=== PATIENT | male | born 1945 | race Caucasian/White ===

== ENCOUNTER 2023-10-02 09:05 | Observation (INO) | payer MEDICARE, BC ==
[2023-09-29 16:30] LABS: BASOPHILS # (AUTO) 0.1 X10'3 (0-0.2); BASOPHILS % (AUTO) 1.5 % (0-1); EOSINOPHILS # (AUTO) 0.5 X10'3 (0-0.9); EOSINOPHILS % (AUTO) 5.9 % (0-6); LYMPHOCYTES # (AUTO) 1.4 X10'3 (1.1-4.8); LYMPHOCYTES % (AUTO) 15.3 % (21-51); MEAN CORPUSCULAR HEMOGLOBIN 32.2 PG (27.0-31.0); MEAN CORPUSCULAR HGB CONC 33.7 g/dL (33.0-36.5); MEAN CORPUSCULAR VOLUME 95.5 FL (78-98); MEAN PLATELET VOLUME 6.9 FL (7.4-10.4); MONOCYTES # (AUTO) 0.6 X10'3 (0-0.9); MONOCYTES % (AUTO) 6.4 % (2-12); NEUTROPHILS # (AUTO) 6.4 X10'3 (1.8-7.7); NEUTROPHILS % (AUTO) 70.9 % (42-75); PRE OP HEMATOCRIT 45.2 % (42.0-52.0); PRE OP HEMOGLOBIN 15.2 g/dL (14.0-17.9); PRE OP PLATELET COUNT 267 X10'3 (140-440); PRE OP WHITE BLOOD COUNT 9.1 10'3 (4.8-10.8); RED BLOOD COUNT 4.73 X10'6 (4.70-6.10); RED CELL DISTRIBUTION WIDTH 14.5 % (11.5-14.5)
[2023-09-29 17:01] LABS: ALBUMIN 3.5 G/DL (3.4-5.0); ALBUMIN/GLOBULIN RATIO 0.9 (1.1-1.5); ALKALINE PHOSPHATASE 75 IU/L (46-116); BLOOD UREA NITROGEN 17 MG/DL (7-18); BUN/CREATININE RATIO 17.7 (10.0-20.0); CALCIUM 8.6 MG/DL (8.5-10.1); CHLORIDE 107 MMOL/L (99-107); CREATININE 0.96 MG/DL (0.60-1.10); PRE OP ALT 22 U/L (30-65); PRE OP ANION GAP 8 (8-16); PRE OP AST 18 U/L (10-37); PRE OP BILIRUB, TOTAL 0.4 MG/DL (0.0-1.0); PRE OP GLUCOSE 106 MG/DL (70-104); PRE OP SODIUM 144 MMOL/L (135-145); TOTAL CARBON DIOXIDE 29.5 MMOL/L (24-32); TOTAL PROTEIN 7.5 G/DL (6.4-8.2); eGFR 76 ML/MIN
[~2023-10-02] VITALS: Ht 160 cm; Wt 90.7 kg
[2023-10-02] VITALS (23 sets, daily range): BP systolic 121–173; BP diastolic 60–100; PULSE 53–72; RESP 12–24; TEMP 97.9; O2SAT 88–98
[2023-10-02] MEDS: cefazolin 2gm/D5W 100mL 100 ML IV ONE (05:30)
[2023-10-02] MEDS: DOCUMENT DATE & TIME OF BETA-BLOCKER PO ONE (05:30)
[2023-10-02] MEDS: aspirin 325mg tablet PO SCH (08:30)
[~2023-10-02 09:05] MED LIST: DUTA0.5C36 PO; FELO10TA44 PO; FLO0.4C PO; GLUCOSAMINE; HYDR50TA46 PO; LOSA100T58 PO; NEBI5TAB12 PO; OMEGA 3; OXYB5TAB21 PO; QUERCETIN; VITAMIN C; VITAMIN D; ZINC; [UNRECOGNIZED DRUG - OTHER]; tranexamic acid 650mg tablet PO ONE
[2023-10-02] MEDS: famotidine 20mg tablet PO ONE (10:38)
[2023-10-02] MEDS: ringers solution, lacted 1,000 ML IV SCH (10:38)
[2023-10-02] MEDS: vancomycin 1,500 MG in NS 300ml IV soln IV ONE (10:38)
[2023-10-02] MEDS ORDERED: ROPIVAcaine 0.5% (5mg/ml) 30ml vial ONE ×2 (10:41→15:35)
[2023-10-02] MEDS ORDERED: BUPIVACAINE/MELOXICAM 14 ML VIAL IL ONE (11:39)
[2023-10-02] MEDS ORDERED: BUPIVAcaine/dex-water/PF 7.5 mg/ml 2ml ampul ONE (13:00)
[2023-10-02] MEDS ORDERED: fentaNYL/PF 50MCG/1 ML 2ML syringe ONE (13:10)
[2023-10-02] MEDS ORDERED: MIDAZolam 1 MG/ML 5ML VIAL ONE (13:10)
[2023-10-02] MEDS ORDERED: propofol inj 20 ML IV ONE (13:26)
[2023-10-02] MEDS ORDERED: LIDOcaine 1%/PF 5ML 10 MG/ML VIAL ONE (13:26)
[2023-10-02] MEDS: ROPIVAcaine 0.5% (5mg/ml) 30ml vial IJ ONE (14:02)
[2023-10-02] MEDS ORDERED: BUPIVAcaine/PF 7.5mg/ml (0.75%) 10ml vial ONE (15:10)
[2023-10-02] MEDS ORDERED: ROPIVAcaine 0.2% (10 MG/5 ML) BOLUS INJECTION ADDCANAL PRN (16:00)
[2023-10-02] MEDS ORDERED: magnesium hydroxide 30ml (MOM) UD suspension PO PRN (16:05)
[2023-10-02] MEDS ORDERED: bisacodyl 10mg suppository rectal RC PRN (16:05)
[2023-10-02] MEDS ORDERED: ondansetron/PF 4mg/2ml inj IV PRN (16:05)
[2023-10-02] MEDS ORDERED: naloxone 0.4 mg/ml inj IV PRN (16:05)
[2023-10-02] MEDS ORDERED: HYDROmorphone inj. 0.5 MG/0.5 ML DISP.SYRIN IV PRN (16:05)
[2023-10-02] MEDS ORDERED: oxyCODONE IR 5mg (immed. release) tablet PO PRN ×2 (16:05)
[2023-10-02] MEDS ORDERED: diphenhydrAMINE 25mg capsule PO PRN ×2 (16:05)
[2023-10-02] MEDS ORDERED: acetaminophen 325mg tablet PO PRN (16:05)
[2023-10-02] MEDS: ROPIVAcaine 0.2%/PF PUMP/bolus 545 ML ADDCANAL SCH (17:19)
[2023-10-02] MEDS: dutasteride 0.5 MG capsule PO SCH (21:00)
[2023-10-02] MEDS: vancomycin/NS 1 GM ADD-VANTAGE 250 ML IV SCH (21:04)
[2023-10-02] MEDS: sennosides 8.6mg tablet PO SCH (21:04)
[2023-10-02] MEDS: amLODIPine 5mg tablet PO SCH (21:05)
[2023-10-02] MEDS: acetaminophen 325mg tablet PO SCH (21:06)
[2023-10-02] MEDS: tamsulosin 0.4mg capsule PO SCH (21:07)
[2023-10-02] MEDS: losartan 50mg tablet PO SCH (21:07)
[2023-10-02] MEDS: oxybutynin 5mg tablet PO SCH (21:07)
[2023-10-02] MEDS: hydrALAZINE 25 MG tablet PO SCH (21:08)
[2023-10-02] MEDS: ceFAZolin/D5W- 1GM premix 50 ML IV SCH (23:50)
[2023-10-03] MEDS: potassium cl 20mEq in 1/2 NS 1,000 ML IV SCH (00:05)
[2023-10-03 02:00] VITALS: BP 128/71; PULSE 61; RESP 18; TEMP 97.8; O2SAT 96
[2023-10-03 06:00] VITALS: BP 150/74; PULSE 68; RESP 18; TEMP 97; O2SAT 94
[2023-10-03] MEDS: HYDROmorphone 1 mg/ml syringe IV PRN (06:29)
[2023-10-03 06:59] LABS: BASOPHILS # (AUTO) 0.1 X10'3 (0-0.2); BASOPHILS % (AUTO) 0.9 % (0-1); EOSINOPHILS % (AUTO) 0.2 % (0-6); HEMOGLOBIN 13.4 g/dl (14.0-17.9); LYMPHOCYTES # (AUTO) 1.4 X10'3 (1.1-4.8); MEAN CORPUSCULAR HEMOGLOBIN 32.6 PG (27.0-31.0); MEAN CORPUSCULAR HGB CONC 34.2 g/dL (33.0-36.5); MEAN CORPUSCULAR VOLUME 95.3 FL (78-98); MEAN PLATELET VOLUME 7.3 FL (7.4-10.4); MONOCYTES # (AUTO) 1.2 X10'3 (0-0.9); MONOCYTES % (AUTO) 11.9 % (2-12); NEUTROPHILS # (AUTO) 7.4 X10'3 (1.8-7.7); PLATELET COUNT 251 X10'3 (140-440); RED BLOOD COUNT 4.09 X10'6 (4.70-6.10); RED CELL DISTRIBUTION WIDTH 14.6 % (11.5-14.5); WHITE BLOOD COUNT 10.1 X10'3 (4.5-11.0)
[2023-10-03 07:15] LABS: ANION GAP 7 (8-16); CHLORIDE 110 MMOL/L (99-107); SODIUM 143 MMOL/L (135-145); TOTAL CARBON DIOXIDE 25.6 MMOL/L (24-32)
[2023-10-03 10:00] VITALS: BP 140/67; PULSE 67; RESP 16; TEMP 98; O2SAT 94
[2023-10-03 13:47] VITALS: BP_SYST 134; PULSE 77
[2023-10-03] MEDS ORDERED: metoprolol tartrate 25mg tablet PO SCH (13:55)
[2023-10-03] MEDS ORDERED: celeCOXIB 100mg capsule PO SCH (20:00)
[2023-10-04] MEDS ORDERED: acetaminophen 325mg tablet PO PRN (08:25)
[2023-11-17] MEDS ORDERED: OMEG1CAP46 PO (16:02)
[2023-11-17] MEDS ORDERED: GLUC15006 PO (16:02)
[2023-11-17] MEDS ORDERED: ZINC11TA (16:02)
[2023-11-17] MEDS ORDERED: ASCO-356 (16:02)
[2023-11-17] MEDS ORDERED: CHOL10008 PO (16:02)
[2023-11-17] MEDS ORDERED: QUER500C (16:02)
== END 2023-10-03 14:25 | disposition home or self-care (01) ==
LOC: PAS 09:05 → PAS IN 16:05 → ORTHO 4S 17:39
PROVIDERS: ADMIT Orthopaedic Surgery; ATTEND Orthopaedic Surgery
DX: M17.0 Bilateral primary osteoarthritis of knee (principal); G47.30 Sleep apnea, unspecified; I10 Essential (primary) hypertension; N40.0 Benign prostatic hyperplasia without lower urinary tract symptoms; Z87.891 Personal history of nicotine dependence; Z79.899 Other long term (current) drug therapy
CPT/HCPCS: 20985; 27447; 36415; 80051; 80053; 82948; 85025; 87081; 96365; 96366; 96367; 96375; 97116; 97161; 97530; C1776; G0378; J0690; J1170; J2250; J2704; J2795; J3010; J3370; J3480; J3490; J7030; J7120; A4215; A7000

== ENCOUNTER 2023-11-08 11:48 | Emergency (ER) | payer MEDICARE, BC ==
[~2023-11-08] VITALS: Ht 167.6 cm; Wt 94.1 kg
[~2023-11-08 11:48] MED LIST changes: -tranexamic acid 650mg tablet PO ONE
[2023-11-08 11:58] VITALS: TEMP 98.3
[2023-11-08 14:03] VITALS: BP 172/94; PULSE 73; RESP 16; O2SAT 93
[2023-11-08 14:40] LABS: BASOPHILS # (AUTO) 0.1 X10'3 (0-0.2); BASOPHILS % (AUTO) 1.2 % (0-1); EOSINOPHILS # (AUTO) 0.3 X10'3 (0-0.9); EOSINOPHILS % (AUTO) 3.6 % (0-6); HEMATOCRIT 41.6 % (42.0-52.0); HEMOGLOBIN 13.6 g/dl (14.0-17.9); LYMPHOCYTES # (AUTO) 1.6 X10'3 (1.1-4.8); LYMPHOCYTES % (AUTO) 20.5 % (21-51); MEAN CORPUSCULAR HEMOGLOBIN 30.9 PG (27.0-31.0); MEAN CORPUSCULAR HGB CONC 32.8 g/dL (33.0-36.5); MEAN CORPUSCULAR VOLUME 94.3 FL (78-98); MEAN PLATELET VOLUME 6.5 FL (7.4-10.4); MONOCYTES # (AUTO) 0.6 X10'3 (0-0.9); MONOCYTES % (AUTO) 7.9 % (2-12); NEUTROPHILS # (AUTO) 5.1 X10'3 (1.8-7.7); NEUTROPHILS % (AUTO) 66.8 % (42-75); PLATELET COUNT 319 X10'3 (140-440); RED BLOOD COUNT 4.41 X10'6 (4.70-6.10); WHITE BLOOD COUNT 7.6 X10'3 (4.5-11.0)
[2023-11-08 14:51] LABS: ALBUMIN 3.6 G/DL (3.4-5.0); ANION GAP 5 (8-16); BLOOD UREA NITROGEN 21 MG/DL (7-18); BUN/CREATININE RATIO 24.4 (10.0-20.0); C-REACTIVE PROTEIN 1.55 MG/DL (0.0-0.5); CALCIUM 8.9 MG/DL (8.5-10.1); CHLORIDE 105 MMOL/L (99-107); CREATININE 0.86 MG/DL (0.60-1.10); GLUCOSE 99 MG/DL (70-104); SODIUM 139 MMOL/L (135-145); TOTAL CARBON DIOXIDE 29.3 MMOL/L (24-32); eCRCL 66 ML/MIN; eGFR 86 ML/MIN
[2023-11-08] MEDS ORDERED: OXYC-658 PO (17:02)
== END 2023-11-08 17:42 | disposition home or self-care (01) ==
LOC: ER 11:49
DX: T84.84XA Pain due to internal orthopedic prosthetic devices, implants and grafts, initial encounter (principal); M25.562 Pain in left knee; I10 Essential (primary) hypertension; Z79.899 Other long term (current) drug therapy; Z87.891 Personal history of nicotine dependence
CPT/HCPCS: 36415; 73564; 80048; 83605; 85025; 85651; 86140; 87040; 93971; 99284; A6449